=== PATIENT | female | born 2000 | race Caucasian/White ===

== ENCOUNTER 2021-02-28 17:55 | Emergency (ER) | payer OTHER ==
[~2021-02-28] VITALS: Ht 175.3 cm; Wt 100.0 kg
[2021-02-28 19:45] VITALS: BP 131/82
== END 2021-02-28 19:54 | disposition home or self-care (01) ==
LOC: EMS 17:58
DX: O26.893 Other specified pregnancy related conditions, third trimester (principal); Z3A.40 40 weeks gestation of pregnancy
CPT/HCPCS: 76805; 99284; Z7502